=== PATIENT | female | born 1930 | race Caucasian/White ===

== ENCOUNTER 2019-07-11 19:42 | Emergency (ER) | payer MEDICARE ==
[2019-07-11] MEDS ORDERED: NORMAL SALINE 500 ML IV ONE (21:36)
--- NOTE | 2019-07-11 22:40 | RADIOLOGY REPORT (SQ) ---
EXAM DESCRIPTION: CT HEAD WITHOUT IV CONTRAST COMPLETED DATE/TME: 07/11/2019 21:34 CLINICAL HISTORY: fall COMPARISON: None Available. TECHNIQUE: Contiguous axial images of the brain were obtained without the administration of intravenous contrast.This exam was performed according to our departmental dose-optimization program, which includes automated exposure control, adjustment of the mA and/or kV according to patient size and/or use of iterative reconstruction technique. FINDINGS: There is no acute intracranial hemorrhage or mass effect. Areas of low attenuation in the periventricular and subcortical white matter are nonspecific but suggestive of small vessel disease. There is generalized atrophy. Ventricular system is within normal limits. There is adequate hurtado-white matter differentiation. There is no skull fracture. The visualized paranasal sinuses and mastoid air cells are within normal limits. There is atherosclerosis. IMPRESSION: No acute intracranial abnormalities.
--- NOTE | 2019-07-11 22:47 | RADIOLOGY REPORT (SQ) ---
EXAM DESCRIPTION: Chest x-ray one view CLINICAL HISTORY: fall COMPARISON: None FINDINGS: Cardiac silhouette is within normal limits. There is atherosclerosis. EKG leads project over the chest. There is no focal parenchymal or pleural disease. There is no acute osseous process visualized. IMPRESSION: No evidence of acute cardiopulmonary disease.
--- NOTE | 2019-07-11 22:48 | RADIOLOGY REPORT (SQ) ---
EXAM DESCRIPTION: XR PELVIS 1-2 VIEWS COMPLETED DATE/TME: 07/11/2019 21:38 CLINICAL HISTORY: 88 years, Female, fall COMPARISON: None. NUMBER OF VIEWS: 1 TECHNIQUE: AP pelvis LIMITATIONS: None. FINDINGS: Osteopenia. Degenerative changes of hips bilaterally. Degenerative change of the lumbar spine and sacroiliac joints. No radiographic evidence for acute fracture or dislocation. Correlate with any history of inability to ambulate. IMPRESSION: Osteopenia. No acute fracture copyright 2010 [employer]- All Rights Reserved
--- NOTE | 2019-07-11 23:11 | ER Document Report ---
Entered by CHARLY JOHNSON SCRIBE 07/11/192133 Acting as scribe for:SIENNA CORREIA IV, MD ED Fall - General Chief Complaint: Fall Stated Complaint: BACK PAIN/LEFT LEG PAIN/FALL Time Seen by Provider: 07/11/19 21:23 Primary Care Provider: CHARLENE KEE NP [Primary Care Provider] - Follow up as needed Mode of Arrival: Medic Information source: Patient, Emergency Med Personnel Notes: This 88 year old female patient brought in by EMS presents to the ED today with complaints of a fall that occurred prior to arrival. Patient states that she was trying to leave the bathroom when she tripped on the rug and fell, landing on the left side of her body. She notes that she wasn't able to move for approximately x3 hours. She reports pain to her neck, LUE, left hip, back, and left foot. Denies hitting her head or LOC. EMS administered 75 mcg Fentanyl and 400 ml LR during transport in addition to placing a C-collar per ED nurse. Patient also reports generalized weakness and poor appetite for the past x2 weeks due to her 's . - Related data Allergies/Adverse Reactions: No Known Allergies Allergy (Unverified 06/26/12 11:18) Past Medical History - General Information source: Patient - Social History Smoking Status: Never Smoker Cigarette use (# per day): No Chew tobacco use (# tins/day): No Smoking Education Provided: No Lives with: Family Family History: Reviewed & Not Pertinent Patient has suicidal ideation: No Patient has homicidal ideation: No - Past Medical History Cardiac Medical History: Reports: Hx Atrial Fibrillation, Hx Hypertension - ATENOLOL GI Medical History: Reports: Hx Hiatal Hernia Review of Systems - Review of Systems Constitutional: No symptoms reported EENT: No symptoms reported Cardiovascular: No symptoms reported Respiratory: No symptoms reported Gastrointestinal: No symptoms reported Genitourinary: No symptoms reported Female Genitourinary: No symptoms reported Musculoskeletal: See HPI, Back pain, Joint pain - Left hip, Neck pain, Other - LUE and LLE pain. denies: Deformity Skin: No symptoms reported Hematologic/Lymphatic: No symptoms reported Neurological/Psychological: See HPI. denies: Lost consciousness, Headaches -: Yes All other systems reviewed and negative Physical Exam - Vital signs Vitals: Resp BP Pulse Ox 17 115/57 L 92 07/11/19 19:48 07/11/19 19:48 07/11/19 19:48 - General General appearance: Alert, Other - C-spine immobilized by rigid C-collar In distress: None - HEENT Head: Normocephalic, Atraumatic Eyes: Normal Pupils: PERRL - Respiratory Respiratory status: No respiratory distress Chest status: Nontender Breath sounds: Normal Chest palpation: Normal - Cardiovascular Rhythm: Regular Heart sounds: Normal auscultation Murmur: No Friction rub: No Gallop: None auscultated - Abdominal Inspection: Normal Distension: No distension Bowel sounds: Normal Tenderness: Nontender - Abdomen soft Organomegaly: No organomegaly - Back Back: Normal, Nontender - Extremities General upper extremity: Normal inspection, Other - No deformity General lower extremity: Normal inspection, Other - No deformity. No foreshortening of the LE - Neurological Neuro grossly intact: Yes Orientation: AAOx4 Speech: Other - Slurred due to pain medication Cranial nerves: Normal. No: Facial palsy - Psychological Associated symptoms: Normal affect, Normal mood - Skin Skin Temperature: Warm Skin Moisture: Dry Skin Color: Normal Course - Re-evaluation Re-evalutation: 07/12/19 02:04 Results of ED MSE discussed with patient. All questions were answered prior to discharge. Emergency signs and symptoms, reasons to return to the emergency department discussed with patient. - Vital Signs Vital signs: Temp Pulse Resp BP Pulse Ox 98.6 F 99 25 H 112/54 L 95 07/11/19 19:49 07/11/19 19:49 07/12/19 01:01 07/12/19 01:01 07/12/19 01:01 - Laboratory Result Diagrams: 07/11/19 19:48 07/12/19 00:37 Laboratory results interpreted by me: 07/11/19 07/12/19 07/12/19 19:48 00:37 01:05 Hct 34.9 L Lymph % (Auto) 9.0 L Beltrami % (Auto) 13.4 H Sodium 132.1 L Potassium 3.5 L Chloride 96 L BUN 37 H Est GFR (MDRD) Non-Af 51 L AST 46 H Creatine Kinase 315 H Total Protein 6.1 L Albumin 3.1 L Urine Protein 30 H Urine Ketones TRACE H Urine Blood MODERATE H Urine Ascorbic Acid 40 H Discharge - Discharge Clinical Impression: Grief reaction, Dehydration Accidental fall Qualifiers: Encounter type: initial encounter Qualified Code(s): W19.XXXA - Unspecified fall, initial encounter Condition: Good Disposition: HOME, SELF-CARE Additional Instructions: Return to the Emergency Department without delay if any worse. HOME CARE INSTRUCTIONS & INFORMATION: Thank you for choosing us for your medical needs. We hope you're satisfied with the care you received. After you leave, you must properly care for your problem and, at the same time, observe its progress. Any condition can change. Some illnesses can change rapidly over hours or days. If your condition worsens, return to the Emergency Department or see your physician promptly. ABOUT YOUR X-RAYS AND EKG'S: If you had an EKG or X-rays taken, they have been read by the Emergency Physician. The X-rays and EKG's will also be read by a Radiologist or Motor Room Controller within 24 hours. If discrepancies are noted, you will be notified by telephone. Please be certain the ED has a correct telephone number & address where you can be reached. Also, realize that some fractures or abnormalities do not show up on initial X-rays. If your symptoms continue, see your physician. ABOUT YOUR LABORATORY TEST: If you had laboratory tests, the results have been reviewed by the Emergency Physician. Some test results (for example cultures) may not be available for several days. You will be contacted if any test result shows you need additional treatment. Please be certain the ED has a correct telephone number and address where you can be reached. ABOUT YOUR MEDICATIONS: You will receive instructions on how to take your medicine on the prescription label you receive. Additional information may be provided by the Pharmacy. If you have questions afterwards, call the ED for clarification or further instructions. Some prescribed medications may cause drowsiness. Do not perform tasks such as driving a car or operating machinery without consulting your Pharmacist. If you feel you need a refill of pain medication, your condition will need re-evaluation. Please do not call for a refill of any medication. ABOUT YOUR SIGNATURE: Signature of this document acknowledges to followin. Understanding that you received emergency treatment and that you may be released before al medical problems are known or treated. Please be certain the ED has a correct phone number & address where you can be reached. 2. Acknowledgement that you will arrange for follow-up care as recommended. 3. Authorization for the Emergency Physician to provide information to your follow-up Physician in order to maximize your care. AT ANY TIME, IF YOUR SYMPTOMS CHANGE SIGNIFICANTLY OR WORSEN OR YOU DEVELOP NEW SYMPTOMS, RETURN TO THE EMERGENCY DEPARTMENT IMMEDIATELY FOR RE-EVALUATION. OUR GOAL IS TO PROVIDE EXCELLENT MEDICAL CARE! WE HOPE THAT WE HAVE MET YOUR EXPECTATIONS DURING YOUR EMERGENCY DEPARTMENT VISIT AND THAT YOU FEEL YOU HAVE RECEIVED EXCELLENT CARE! Dehydration Dehydration can result from vomiting or diarrhea, fever, or decreased intake of fluids. If severe, hospitalization and intravenous fluids may be required. Most cases are treated at home with fluids by mouth. For the next 24 hours, drink lots of clear fluids. In mild cases, this can be soda pop or sports drinks. For more severe dehydration, the doctor may recommend special fluids such as Pedialyte or Lytren. Try to get three liters (3 quarts) of fluid per day. If vomiting occurs, continue to drink the fluids frequently (every 15 to 20 minutes), but in small amounts (one or two ounces). Depending on the type of dehydration, the doctor may prescribe antinausea medicine or potassium replacements. Call the doctor or return for re-examination if you become progressively weak, vomit repeatedly, or have other new symptoms. Referrals: CHARLENE KEE NP [Primary Care Provider] - Follow up as needed I personally performed the services described in the documentation, reviewed and edited the documentation which was dictated to the scribe in my presence, and it accurately records my words and actions.
[2019-07-11 23:29] LABS: ABSOLUTE LYMPHOCYTES (AUTO) 0.5 10^3/uL (0.5-4.7); ABSOLUTE MONOCYTES (AUTO) 0.7 10^3/uL (0.1-1.4); ABSOLUTE NEUT (AUTO) 3.9 10^3/uL (1.7-8.2); BASOPHILS % (AUTO) 0.4 % (0-2); EOSINOPHILS % (AUTO) 0.1 % (0-6); HEMATOCRIT 34.9 % (36.0-47.0); HEMOGLOBIN 12.3 g/dL (12.0-15.5); MEAN CORPUSCULAR HGB CONC 35.2 g/dL (32.0-36.0); MEAN CORPUSCULAR VOLUME 88 fl (80-97); MONOCYTES % (AUTO) 13.4 % (3-13); PLATELET COUNT 150 10^3/uL (150-450); RED BLOOD COUNT 3.96 10^6/uL (3.72-5.28); RED CELL DISTRIBUTION WIDTH 13.8 % (11.5-14.0); SEGMENTED NEUTROPHILS % (AUTO) 77.1 % (42-78); TOTAL CELLS COUNTED % (AUTO) 100 %; WHITE BLOOD COUNT 5.1 10^3/uL (4.0-10.5)
[2019-07-12 01:08] LABS: ALBUMIN 3.1 g/dL (3.5-5.0); ALKALINE PHOSPHATASE 65 U/L (38-126); ANION GAP 8 (5-19); ASPARTATE AMINO TRANSFERASE 46 U/L (14-36); BILIRUBIN,TOTAL 1.1 mg/dL (0.2-1.3); BLOOD UREA NITROGEN 37 mg/dL (7-20); CALCIUM 8.4 mg/dL (8.4-10.2); CARBON DIOXIDE 28 mmol/L (22-30); CHLORIDE 96 mmol/L (98-107); CREATINE KINASE 315 U/L (30-135); GLUCOSE 105 mg/dL (75-110); POTASSIUM 3.5 mmol/L (3.6-5.0); TOTAL PROTEIN 6.1 g/dL (6.3-8.2)
[2019-07-12 01:20] LABS: APPEARANCE,URINE CLOUDY; BILIRUBIN,URINE NEGATIVE (NEGATIVE); COLOR,URINE AMBER; GLUCOSE, URINE NEGATIVE (NEGATIVE); KETONES,URINE TRACE mg/dL (NEGATIVE); PROTEIN,URINE 30 mg/dL (NEGATIVE); URINE SPECIFIC GRAVITY 1.017; UROBILINOGEN,URINE NEGATIVE mg/dL (<2.0)
[2019-07-12 03:24] VITALS: BP 115/69
--- NOTE | 2019-07-12 10:54 | EKG REPORT ---
SEVERITY:- ABNORMAL ECG - ATRIAL FIBRILLATION, V-RATE 73-129 PROBABLE INFEROLATERAL INFARCT, AGE INDETERM CONSIDER ANTERIOR INFARCT : Confirmed by: Eric Cardona 12-Jul-2019 10:52:30
== END 2019-07-12 03:24 | disposition home or self-care (01) ==
LOC: ER 19:42
DX: F43.20 Adjustment disorder, unspecified (principal); E86.0 Dehydration; M54.9 Dorsalgia, unspecified; M79.605 Pain in left leg; M54.2 Cervicalgia; M79.602 Pain in left arm; M25.552 Pain in left hip; M79.672 Pain in left foot; R53.1 Weakness; R63.0 Anorexia; W01.0XXA Fall on same level from slipping, tripping and stumbling without subsequent striking against object, initial encounter; I10 Essential (primary) hypertension
CPT/HCPCS: 93005; 36415; 82550; 85025; 80053; 81001; 71045; 72170; 70450; 93010; J7040; 96360; 99284

== ENCOUNTER 2019-09-24 08:51 | Inpatient (IN) | payer MEDICARE ==
[2019-09-24 09:24] LABS: ABSOLUTE LYMPHOCYTES (AUTO) 0.3 10^3/uL (0.5-4.7); ABSOLUTE MONOCYTES (AUTO) 0.6 10^3/uL (0.1-1.4); ABSOLUTE NEUT (AUTO) 3.5 10^3/uL (1.7-8.2); BASOPHILS % (AUTO) 0.4 % (0-2); EOSINOPHILS % (AUTO) 0.3 % (0-6); HEMATOCRIT 33.6 % (36.0-47.0); HEMOGLOBIN 11.9 g/dL (12.0-15.5); LYMPHOCYTES % (AUTO) 7.6 % (13-45); MEAN CORPUSCULAR HGB CONC 35.4 g/dL (32.0-36.0); MEAN CORPUSCULAR VOLUME 87 fl (80-97); MONOCYTES % (AUTO) 13.1 % (3-13); PLATELET COUNT 205 10^3/uL (150-450); RED BLOOD COUNT 3.85 10^6/uL (3.72-5.28); RED CELL DISTRIBUTION WIDTH 14.7 % (11.5-14.0); SEGMENTED NEUTROPHILS % (AUTO) 78.6 % (42-78); TOTAL CELLS COUNTED % (AUTO) 100 %; WHITE BLOOD COUNT 4.5 10^3/uL (4.0-10.5)
[2019-09-24 09:26] LABS: APPEARANCE,URINE SLIGHTLY-CLOUDY; BILIRUBIN,URINE NEGATIVE (NEGATIVE); COLOR,URINE YELLOW; GLUCOSE, URINE NEGATIVE (NEGATIVE); KETONES,URINE NEGATIVE (NEGATIVE); LEUKOCYTE ESTERASE,URINE NEGATIVE (NEGATIVE); NITRITE,URINE NEGATIVE (NEGATIVE); PROTEIN,URINE NEGATIVE (NEGATIVE); URINE SPECIFIC GRAVITY 1.011; UROBILINOGEN,URINE NEGATIVE mg/dL (<2.0)
[2019-09-24 09:29] LABS: INTERNATIONAL RATION (INR) 1.39; PROTHROMBIN TIME 17.1 SEC (11.4-15.4)
[2019-09-24 09:42] LABS: ALBUMIN 3.3 g/dL (3.5-5.0); ALKALINE PHOSPHATASE 73 U/L (38-126); ASPARTATE AMINO TRANSFERASE 34 U/L (14-36); BILIRUBIN,TOTAL 1.1 mg/dL (0.2-1.3); BLOOD UREA NITROGEN 14 mg/dL (7-20); CARBON DIOXIDE 29 mmol/L (22-30); CHLORIDE 82 mmol/L (98-107); GLUCOSE 106 mg/dL (75-110); POTASSIUM 3.8 mmol/L (3.6-5.0); TOTAL PROTEIN 6.7 g/dL (6.3-8.2)
[2019-09-24 09:43] LABS: ANION GAP 6 (5-19)
[2019-09-24] MEDS ORDERED: NORMAL SALINE 1000 ML 1,000 ML IV ONE (09:54)
--- NOTE | 2019-09-24 11:44 | ER Document Report ---
Entered by SONNY MARTINEZ SCRIBE 09/24/19 1059 Acting as scribe for:LEONIDAS FELDMAN MD ED General - General Chief Complaint: Swelling of Lower Extremity Stated Complaint: WEAKNESS Time Seen by Provider: 09/24/19 09:51 Primary Care Provider: CHARLENE KEE NP [Primary Care Provider] - Follow up as needed Information source: Patient Notes: This 89 year old female patient presents to the emergency department today with complaints of bilateral leg weakness. Patient states that she uses a walker at baseline and today she was attempting to get out of bed and into the restroom with her walker but her legs were to weak to get her there. Patient states this has never happened to her in the past. She adds that she has been trying to drink more water recently. - Related Data Allergies/Adverse Reactions: No Known Allergies Allergy (Unverified 06/26/12 11:18) Past Medical History - General Information source: Patient - Social History Smoking Status: Unknown if Ever Smoked Cigarette use (# per day): No Frequency of alcohol use: None Drug Abuse: None Lives with: Family Family History: Reviewed & Not Pertinent Patient has homicidal ideation: No - Past Medical History Cardiac Medical History: Reports: Hx Atrial Fibrillation, Hx Hypertension - ATENOLOL GI Medical History: Reports: Hx Hiatal Hernia Surgical Hx: Negative Review of Systems - Review of Systems Constitutional: No symptoms reported EENT: No symptoms reported Cardiovascular: No symptoms reported Respiratory: No symptoms reported Gastrointestinal: No symptoms reported Genitourinary: No symptoms reported Female Genitourinary: No symptoms reported Musculoskeletal: No symptoms reported Skin: No symptoms reported Hematologic/Lymphatic: No symptoms reported Neurological/Psychological: See HPI, Weakness - lower extremities -: Yes All other systems reviewed and negative Physical Exam - Vital signs Vitals: Resp Pulse Ox 15 92 09/24/19 08:55 09/24/19 08:55 - Notes Notes: Physical Exam: General: Alert, appears well. HEENT: Normocephalic. Atraumatic. PERRL. Extraocular movements intact. Oropharynx clear. Neck: Supple. Non-tender. Respiratory: No respiratory distress. Clear and equal breath sounds bilaterally. Cardiovascular: Regular rate and rhythm. Abdominal: Normal Inspection. Non-tender. No distension. Normal Bowel Sounds. Back: No gross abnormalities. Extremities: Moves all four extremities. Upper extremities: Normal inspection. Normal ROM. Lower extremities: Minimal pitting edema bilaterally. Neurological: Normal cognition. AAOx4. Normal speech. Psychological: Normal affect. Normal Mood. Skin: Warm. Dry. Normal color. Course - Vital Signs Vital signs: Temp Pulse Resp BP Pulse Ox 98 F 14 107/53 L 97 09/24/19 09:01 09/24/19 11:01 09/24/19 11:01 09/24/19 11:01 - Laboratory Result Diagrams: 09/24/19 09:03 09/24/19 09:03 Laboratory results interpreted by me: 09/24/19 09/24/19 09/24/19 09:03 09:03 09:03 Hgb 11.9 L Hct 33.6 L RDW 14.7 H Lymph % (Auto) 7.6 L Terry % (Auto) 13.1 H Absolute Lymphs (auto) 0.3 L Seg Neutrophils % 78.6 H PT 17.1 H Sodium 117.3 L* Chloride 82 L Albumin 3.3 L Urine Ascorbic Acid 09/24/19 09:03 Hgb Hct RDW Lymph % (Auto) Terry % (Auto) Absolute Lymphs (auto) Seg Neutrophils % PT Sodium Chloride Albumin Urine Ascorbic Acid 40 H - EKG Interpretation by Dc EKG shows normal: Anita, Intervals, ST-T Waves. abnormal: QRS Complexes - Inferior Q waves Rate: Normal - 80 Rhythm: A.Fib - Consults Kortney Grigsby NP Time consulted: 11:53 Consulted provider: will come to ER Discharge - Discharge Clinical Impression: Hyponatremia, Weakness of both lower extremities Condition: Stable Disposition: ADMITTED INPATIENT Admitting Provider: Chalo (Hospitalist) Unit Admitted: Telemetry Referrals: CHARLENE KEE NP [Primary Care Provider] - Follow up as needed I personally performed the services described in the documentation, reviewed and edited the documentation which was dictated to the scribe in my presence, and it accurately records my words and actions.
[2019-09-24 13:10] LABS: URINE CREATININE 74.9 mg/dL (15-278)
[2019-09-24 13:52] LABS: BLOOD UREA NITROGEN 13 mg/dL (7-20); CALCIUM 8.2 mg/dL (8.4-10.2); CARBON DIOXIDE 28 mmol/L (22-30); CHLORIDE 86 mmol/L (98-107); GLUCOSE 109 mg/dL (75-110); POTASSIUM 3.6 mmol/L (3.6-5.0)
[2019-09-24 13:54] LABS: ANION GAP 5 (5-19)
[2019-09-24] MEDS ORDERED: MAGNESIUM HYDROXIDE SUSP 30 ML UDCUP PO PRN (14:50)
[2019-09-24] MEDS ORDERED: ACETAMINOPHEN 325 MG TABLET PO PRN (14:50)
[2019-09-24] MEDS ORDERED: PROMETHAZINE HCL INJ 25 MG/1 ML VIAL IV PRN (14:50)
[2019-09-24] MEDS ORDERED: ALBUTEROL SULFATE 0.083% NEB 2.5 MG/3 ML AMPUL NEB PRN (14:50)
[2019-09-24] MEDS ORDERED: MAG HYDROX/AL HYDROX/SIMETH SUSP 30 ML UDCUP PO PRN (14:50)
[2019-09-24] MEDS ORDERED: ONDANSETRON HCL INJ/PF 4 MG/2 ML SDV IV PRN (14:50)
--- NOTE | 2019-09-24 16:01 | RADIOLOGY REPORT (SQ) ---
EXAM DESCRIPTION: CT SOFT TISSUE NECK WITH IMAGES COMPLETED DATE/TIME: 09/24/2019 3:49 pm REASON FOR STUDY: dysphagia, early satiety COMPARISON: None. TECHNIQUE: Post IV contrasted scanning from skull base through lung apices with review of bone, soft tissue and lung windows. Reconstructed coronal and sagittal MPR images reviewed. All images stored on PACS. All CT scanners at this facility use dose modulation, iterative reconstruction, and/or weight based d osing when appropriate to reduce radiation dose to as low as reasonably achievable (ALARA). [facility]: Dose Right [facility]: CareDose [facility]: Dose Right [facility]: Teradose 4D [facility]: [employer] CONTRAST TYPE AND DOSE: contrast/concentration: Isovue 350.00 mmol/ml; Total Contrast Delivered: 80. 0 ml; Total Saline Delivered: 55.0 ml RENAL FUNCTION: GFR > 60. RADIATION DOSE: CT Rad equipment meets quality standard of care and radiation dose reduction techniq ues were employed. CTDIvol: 13.4 - 26.8 mGy. DLP: 1335 mGy-cm. . LIMITATIONS: None. FINDINGS: SKULL BASE: Intact. MAJOR SALIVARY GLANDS: No solid or cystic masses. No inflammatory changes. LYMPHADENOPATHY: No adenopathy. MUCOSAL MASSES OR ASYMMETRY: No mucosal masses or asymmetry. LARYNX/CORDS: No abnormal findings. VASCULAR STRUCTURES: The major vessels are patent. LUNG APICES: See separate report of the same date. BONES: Intact. THYROID: Normal size. No masses. PARANASAL SINUSES: Clear. OTHER: No other significant finding. IMPRESSION: NO SIGNIFICANT FINDING IN THE SOFT TISSUES OF THE NECK. TECHNICAL DOCUMENTATION: JOB ID: [id number] Quality ID # [id number]: Final reports with documentation of one or more dose reduction techniques (e.g., Au tomated exposure control, adjustment of the mA and/or kV according to patient size, use of iterative reconstruction technique) 2010 [employer]- All Rights Reserved Reading location - IP/workstation name: [email or web address]
--- NOTE | 2019-09-24 16:25 | RADIOLOGY REPORT (SQ) ---
EXAM DESCRIPTION: CT CHEST WITH IMAGES COMPLETED DATE/TIME: 09/24/2019 3:49 pm REASON FOR STUDY: dysphagia, early satiety COMPARISON: None. TECHNIQUE: CT scan of the chest performed using helical scanning technique with dynamic intravenous contrast injection. Images reviewed with lung, soft tissue and bone windows. Reconstructed coronal and sagittal MPR and MIP images reviewed. All images stored on PACS. All CT scanners at this facility use dose modulation, iterative reconstruction, and/or weight based d osing when appropriate to reduce radiation dose to as low as reasonably achievable (ALARA). [facility]: Dose Right [facility]: CareDose [facility]: Dose Right [facility]: Teradose 4D [facility]: [employer] CONTRAST TYPE AND DOSE: 80 mL Omnipaque 350- low osmolar. RENAL FUNCTION: BUN 13 creatinine 0.61 RADIATION DOSE: . LIMITATIONS: None. FINDINGS: LUNGS AND PLEURA: Minimal right pleural effusion. No infiltrate or mass. HILAR AND MEDIASTINAL STRUCTURES: No identified masses or abnormal nodes. HEART AND VASCULAR STRUCTURES: No aneurysm or dissection. No central pulmonary emboli. No pericardi al effusion. HARDWARE: None in the chest. UPPER ABDOMEN: A couple of small nonobstructing intrarenal calculi are seen in the right kidney. THYROID AND OTHER SOFT TISSUES: No masses. No adenopathy. BONES: No significant finding. OTHER: No other significant finding. IMPRESSION: Minimal right pleural effusion. Small nonobstructing right renal calculi. No other sig nificant findings in the chest. TECHNICAL DOCUMENTATION: JOB ID: [id number] Quality ID # [id number]: Final reports with documentation of one or more dose reduction techniques (e.g., Au tomated exposure control, adjustment of the mA and/or kV according to patient size, use of iterative reconstruction technique) 2010 [employer]- All Rights Reserved Reading location - IP/workstation name: [email or web address]
--- NOTE | 2019-09-24 17:52 | PDOC H&P ---
History of Present Illness Admission Date/PCP: 09/24/19 12:14 CHARLENE KEE NP Patient complains of: Generalized weakness History of Present Illness: ESTRADA TAYLOR is a 89 year old female with a past medical history significant for atrial fibrillation (anticoagulated on Eliquis, hypertension, hyperlipidemia, and obesity who presented to the emergency department today with a complaint of generalized weakness that has been progressively worsening over the last several weeks. She also reports early satiety with poor appetite. She is drinking plenty of fluids. Evaluation in the emergency department found hypotension (97/59) but otherwise stable vital signs, mild anemia (hemoglobin 11.9), hyponatremia (NA 117.3), negative troponin, negative urinalysis EKG demonstrated atrial fibrillation. She is provided IV fluids and liberalized dietary sodium. She is referred to the hospitalist for further evaluation management of the above-stated complaints and findings. Past Medical History Cardiac Medical History: Reports: Atrial Fibrillation, Hypertension Denies: Congestive Heart Failure, Coronary Artery Disease, Myocardial Infarction Pulmonary Medical History: Reports: None EENT Medical History: Reports: None Neurological Medical History: Reports: None Endocrine Medical History: Reports: None Renal/ Medical History: Reports: None Malignancy Medical History: Reports: None GI Medical History: Reports: Hiatal Hernia Denies: Hepatitis Musculoskeltal Medical History: Reports: None Skin Medical History: Reports: None Psychiatric Medical History: Reports: None Traumatic Medical History: Reports: None Hematology: Denies: Anemia, Sickle Cell Disease Infectious Medical History: Reports: None Past Surgical History Past Surgical History: Reports: Cholecystectomy Denies: Amputation, Pacemaker Social History Information Source: Patient Lives with: Family Smoking Status: Unknown if Ever Smoked Electronic Cigarette use?: No Frequency of Alcohol Use: None Hx Recreational Drug Use: No - Advance Directive Resuscitation Status: Do Not Resuscitate Family History Family History: Reviewed & Not Pertinent, Malignancy, Thyroid Disfunction Parental Family History Reviewed: Yes Children Family History Reviewed: Yes Sibling(s) Family History Reviewed.: Yes Medication/Allergy Home Medications: Atenolol [Tenormin 25 mg Tablet] 50 mg PO DAILY 06/26/12 Atorvastatin Calcium [Lipitor 10 mg Tablet] 10 mg PO DAILY 06/26/12 Calcium Citrate/Vitamin D3 [Citracal + D Caplet] 2 each PO DAILY 06/26/12 Gluc Abarca/Chondro Abarca A/Vit C/Mn [Glucosamine 1,500 Complex Cap] 2 each PO DAILY 06/26/12 Apixaban [Eliquis 5 mg Tablet] 5 mg PO BID 09/24/19 Lisinopril/Hydrochlorothiazide [Lisinopril-Hctz 20-25 mg Tab] 1 each PO DAILY 09/24/19 Vit A/Vit C/Vit E/Zinc/Copper [Preservision Areds Tablet] 1 each PO DAILY 09/24/19 Allergies/Adverse Reactions: No Known Allergies Allergy (Unverified 06/26/12 11:18) Review of Systems Constitutional: PRESENT: weakness. ABSENT: chills, fever(s), headache(s), weight gain, weight loss Eyes: ABSENT: visual disturbances Ears: ABSENT: hearing changes Cardiovascular: ABSENT: chest pain, dyspnea on exertion, edema, orthropnea, palpitations Respiratory: ABSENT: cough, hemoptysis Gastrointestinal: PRESENT: dysphagia, other - Early satiety. ABSENT: abdominal pain, constipation, diarrhea, hematemesis, hematochezia, nausea, vomiting Genitourinary: ABSENT: dysuria, hematuria Musculoskeletal: ABSENT: joint swelling Integumentary: ABSENT: rash, wounds Neurological: ABSENT: abnormal gait, abnormal speech, confusion, dizziness, focal weakness, syncope Psychiatric: ABSENT: anxiety, depression, homidical ideation, suicidal ideation Endocrine: ABSENT: cold intolerance, heat intolerance, polydipsia, polyuria Hematologic/Lymphatic: ABSENT: easy bleeding, easy bruising Physical Exam Vital Signs: Temp Pulse Resp BP Pulse Ox 98 F 16 104/54 L 98 09/24/19 09:01 09/24/19 13:01 09/24/19 13:01 09/24/19 13:01 Intake & Output 09/23/19 09/24/19 09/25/19 06:59 06:59 06:59 Intake Total 1000 Balance 1000 Weight 67.5 kg General appearance: PRESENT: no acute distress, cooperative, well-developed, well-nourished - Overweight Head exam: PRESENT: atraumatic, normocephalic Eye exam: PRESENT: conjunctiva pink, EOMI, PERRLA. ABSENT: scleral icterus Mouth exam: PRESENT: moist, tongue midline Neck exam: ABSENT: carotid bruit, JVD, lymphadenopathy, thyromegaly Respiratory exam: PRESENT: clear to auscultation jennyfer, symmetrical, unlabored. ABSENT: rales, rhonchi, wheezes Cardiovascular exam: PRESENT: RRR, +S1, +S2. ABSENT: diastolic murmur, rubs, systolic murmur Pulses: PRESENT: normal dorsalis pedis pul Vascular exam: PRESENT: normal capillary refill GI/Abdominal exam: PRESENT: normal bowel sounds, soft. ABSENT: distended, gu arding, mass, organolmegaly, rebound, tenderness Rectal exam: PRESENT: deferred Extremities exam: PRESENT: full ROM. ABSENT: calf tenderness, clubbing, pedal edema Neurological exam: PRESENT: alert, awake, oriented to person, oriented to place, oriented to time, oriented to situation, CN II-XII grossly intact, other - Fati jace. ABSENT: motor sensory deficit Psychiatric exam: PRESENT: appropriate affect, normal mood. ABSENT: homicidal ideation, suicidal ideation Skin exam: PRESENT: dry, intact, warm. ABSENT: cyanosis, rash Results Laboratory Results: 09/24/19 09:03 09/24/19 13:18 09/24/19 09/24/19 09/24/19 09:03 09:03 09:03 WBC 4.5 RBC 3.85 Hgb 11.9 L Hct 33.6 L MCV 87 MCH 31.0 MCHC 35.4 RDW 14.7 H Plt Count 205 Seg Neutrophils % 78.6 H Sodium 117.3 L* Potassium 3.8 Chloride 82 L Carbon Dioxide 29 Anion Gap 6 BUN 14 Creatinine 0.69 Est GFR ( Amer) > 60 Glucose 106 Calcium 9.0 Total Bilirubin 1.1 AST 34 Alkaline Phosphatase 73 Total Protein 6.7 Albumin 3.3 L Urine Color YELLOW Urine Appearance SLIGHTLY-CLOUDY Urine pH 7.0 Ur Specific Gunpowder 1.011 Urine Protein NEGATIVE Urine Glucose (UA) NEGATIVE Urine Ketones NEGATIVE Urine Blood NEGATIVE Urine Nitrite NEGATIVE Ur Leukocyte Esterase NEGATIVE Urine WBC (Auto) 1 Urine RBC (Auto) 1 09/24/19 13:18 WBC RBC Hgb Hct MCV MCH MCHC RDW Plt Count Seg Neutrophils % Sodium 119.4 L* Potassium 3.6 Chloride 86 L Carbon Dioxide 28 Anion Gap 5 BUN 13 Creatinine 0.61 Est GFR ( Amer) > 60 Glucose 109 Calcium 8.2 L Total Bilirubin AST Alkaline Phosphatase Total Protein Albumin Urine Color Urine Appearance Urine pH Ur Specific Gunpowder Urine Protein Urine Glucose (UA) Urine Ketones Urine Blood Urine Nitrite Ur Leukocyte Esterase Urine WBC (Auto) Urine RBC (Auto) 09/24/19 09/24/19 09:03 09:03 Creatine Kinase 73 Troponin I < 0.012 Impressions: Chest CT 09/24/19 00:00 IMPRESSION: Minimal right pleural effusion. Small nonobstructing right renal calculi. No other significant findings in the chest. Soft Tissue Neck CT 09/24/19 00:00 IMPRESSION: NO SIGNIFICANT FINDING IN THE SOFT TISSUES OF THE NECK. Assessment and Plan - Diagnosis (1) Hyponatremia Is this a current diagnosis for this admission?: Yes Plan: Slight improvement; 117-> 119. Received 1 L normal saline bolus while in the emergency department. Patient is admitted to the medical floor. We will continue gentle IV fluids. Hold hydrochlorothiazide. Liberalize dietary sodium. Serial chemistries. (2) Atrial fibrillation Qualifiers: Atrial fibrillation type: longstanding persistent Qualified Code(s): I48.11 - Longstanding persistent atrial fibrillation Is this a current diagnosis for this admission?: Yes Plan: Patient will be monitored on telemetry. Rate controlled on home dose atenolol. Continue chronic anticoagulation with Eliquis. (3) Hypertension Is this a current diagnosis for this admission?: Yes Plan: Continue home dose atenolol. Continue lisinopril. Hold hydrochlorothiazide secondary to hyponatremia. (4) Weakness of both lower extremities Is this a current diagnosis for this admission?: Yes Plan: Likely secondary to #1. We will check thyroid and B12 with a.m. lab work. (5) Early satiety Is this a current diagnosis for this admission?: Yes Plan: Patient reports history of hiatal hernia. She also complains of early satiety and 40 pound weight loss over the last [address] Neck and Chest negative for acute findings (did not note esophageal stricture or hiatal hernia; no masses). Will check TSH and B12 w/ AM lab work. deputy sheriff k9 handler is consulted. - Time Time Spent with patient: 35 or more minutes Medications reviewed and adjusted accordingly: Yes Anticipated Discharge Disposition: Home with Home Health Anticipated Discharge Timeframe: within 72 hours - Inpatient Certification Based on my medical assessment, after consideration of the patient's comor bidities, presenting symptoms, or acuity I expect that the services needed warrant INPATIENT care.: Yes I certify that my determination is in accordance with my understanding of Medicare's requirements for reasonable and necessary INPATIENT services [42 CFR 412.3e].: Yes Medical Necessity: Need Close Monitoring Due to Risk of Patient Decompensation, Need For IV Fluids, Risk of Complication if Not Cared For in Hospital
--- NOTE | 2019-09-24 18:02 | EKG REPORT ---
SEVERITY:- ABNORMAL ECG - ATRIAL FIBRILLATION INFERIOR INFARCT, AGE INDETERMINATE : Confirmed by: Kathleen Nguyen MD 24-Sep-2019 18:01:28
[2019-09-24] MEDS: APIXABAN 5 MG TABLET PO SCH (19:57)
[2019-09-24] MEDS: NORMAL SALINE 1000 ML 1,000 ML IV PRN (19:59)
[2019-09-24 23:02] LABS: ANION GAP 6 (5-19); BLOOD UREA NITROGEN 13 mg/dL (7-20); CALCIUM 8.4 mg/dL (8.4-10.2); CARBON DIOXIDE 27 mmol/L (22-30); CHLORIDE 87 mmol/L (98-107); GLUCOSE 102 mg/dL (75-110); POTASSIUM 3.9 mmol/L (3.6-5.0)
[2019-09-25 06:10] LABS: MEAN CORPUSCULAR HEMOGLOBIN 31.1 pg (27.0-33.4); MEAN CORPUSCULAR HGB CONC 35.4 g/dL (32.0-36.0); MEAN CORPUSCULAR VOLUME 88 fl (80-97); PLATELET COUNT 174 10^3/uL (150-450); RED BLOOD COUNT 3.53 10^6/uL (3.72-5.28); RED CELL DISTRIBUTION WIDTH 14.1 % (11.5-14.0); WHITE BLOOD COUNT 3.8 10^3/uL (4.0-10.5)
[2019-09-25 06:37] LABS: ANION GAP 8 (5-19); BLOOD UREA NITROGEN 11 mg/dL (7-20); CALCIUM 7.8 mg/dL (8.4-10.2); CARBON DIOXIDE 24 mmol/L (22-30); CHLORIDE 90 mmol/L (98-107); GLUCOSE 92 mg/dL (75-110); PHOSPHORUS 2.8 mg/dL (2.5-4.5); POTASSIUM 3.4 mmol/L (3.6-5.0)
[2019-09-25] MEDS ORDERED: POTASSIUM CHLORIDE 10 MEQ TABLET.ER PO ONE ×2 (08:30→10:51)
[2019-09-25] MEDS ORDERED: VITAMIN D3 PO SCH (10:00)
[2019-09-25] MEDS ORDERED: (PENDING PHARMACY ID) (Vit A/Vit C/Vit E/Zinc/Copper [Preservision Areds Tablet] 1 EACH) PO SCH (10:00)
[2019-09-25] MEDS ORDERED: [UNRECOGNIZED DRUG - OTHER] PO SCH (10:00)
[2019-09-25] MEDS ORDERED: CALCIUM CITRATE PO SCH (10:00)
[2019-09-25] MEDS ORDERED: ATENOLOL 50 MG PO SCH (10:00)
[2019-09-25] MEDS: ATENOLOL 50 MG TABLET PO SCH (10:52)
[2019-09-25] MEDS: LISINOPRIL 10 MG TABLET PO SCH (10:52)
[2019-09-25] MEDS: APIXABAN 5 MG TABLET PO SCH ×2 (10:52→17:15)
[2019-09-25] MEDS: DOCUSATE SODIUM 100 MG CAPSULE PO SCH (10:53)
--- NOTE | 2019-09-25 14:06 | PDOC PROGRESS REPORT ---
Subjective Progress Note for:: 09/25/19 Subjective:: Patient was seen on morning rounds. She is found resting bed, comfortably, on room air. She is slightly fatigued, though feeling much better today. She is pleased with her ability to work with physical therapy today; ambulated 25 feet with front wheel walker and contact-guard. She denies fever, chills, chest pain, palpitations, dyspnea, orthopnea, abdominal pain, nausea vomiting and diarrhea. She has no new questions or concerns. No concerns per nursing. Reason For Visit: HYPONATREMIA Physical Exam Vital Signs: Temp Pulse Resp BP Pulse Ox 98.1 F 73 16 120/56 L 94 09/25/19 08:04 09/25/19 09:18 09/25/19 09:18 09/25/19 08:04 09/25/19 09:18 Intake & Output 09/24/19 09/25/19 09/26/19 06:59 06:59 06:59 Intake Total 1000 Output Total 950 Balance 50 Weight 73.1 kg General appearance: PRESENT: no acute distress, cooperative, well-developed, well-nourished, other - overweight Head exam: PRESENT: atraumatic, normocephalic Eye exam: PRESENT: conjunctiva pink, EOMI, PERRLA. ABSENT: scleral icterus Mouth exam: PRESENT: moist, tongue midline Respiratory exam: PRESENT: clear to auscultation jennyfer, symmetrical, unlabored. ABSENT: rales, rhonchi, wheezes Cardiovascular exam: PRESENT: RRR. ABSENT: diastolic murmur, rubs, systolic murmur Pulses: PRESENT: normal dorsalis pedis pul Vascular exam: PRESENT: normal capillary refill Rectal exam: PRESENT: deferred Extremities exam: PRESENT: full ROM. ABSENT: calf tenderness, clubbing, pedal edema Musculoskeletal exam: PRESENT: ambulatory Neurological exam: PRESENT: alert, awake, oriented to person, oriented to place, oriented to time, oriented to situation, CN II-XII grossly intact. ABSENT: motor sensory deficit Psychiatric exam: PRESENT: appropriate affect, normal mood. ABSENT: homicidal ideation, suicidal ideation Skin exam: PRESENT: dry, intact, warm. ABSENT: cyanosis, rash Results Laboratory Results: 09/25/19 05:35 09/25/19 05:35 09/24/19 09/24/19 09/25/19 13:18 22:14 05:35 WBC 3.8 L RBC 3.53 L Hgb 11.0 L Hct 31.0 L MCV 88 MCH 31.1 MCHC 35.4 RDW 14.1 H Plt Count 174 Sodium 119.4 L* 120.1 L* Potassium 3.6 3.9 Chloride 86 L 87 L Carbon Dioxide 28 27 Anion Gap 5 6 BUN 13 13 Creatinine 0.61 0.64 Est GFR ( Amer) > 60 > 60 Glucose 109 102 Calcium 8.2 L 8.4 Phosphorus Magnesium Vitamin B12 TSH 09/25/19 09/25/19 05:35 05:35 WBC RBC Hgb Hct MCV MCH MCHC RDW Plt Count Sodium 122.4 L Potassium 3.4 L Chloride 90 L Carbon Dioxide 24 Anion Gap 8 BUN 11 Creatinine 0.57 Est GFR ( Amer) > 60 Glucose 92 Calcium 7.8 L Phosphorus 2.8 Magnesium 1.6 Vitamin B12 865.0 TSH 1.50 09/24/19 09/24/19 09:03 09:03 Creatine Kinase 73 Troponin I < 0.012 Impressions: Chest CT 09/24/19 00:00 IMPRESSION: Minimal right pleural effusion. Small nonobstructing right renal calculi. No other significant findings in the chest. Soft Tissue Neck CT 09/24/19 00:00 IMPRESSION: NO SIGNIFICANT FINDING IN THE SOFT TISSUES OF THE NECK. Assessment and Plan - Diagnosis (1) Hyponatremia Is this a current diagnosis for this admission?: Yes Plan: continued improvement; 117-> 119-> 122.4 Received 1 L normal saline bolus while in the emergency department. Patient is admitted to the medical floor. We will continue gentle IV fluids. Hold hydrochlorothiazide. Liberalize dietary sodium. Serial chemistries. (2) Atrial fibrillation Qualifiers: Atrial fibrillation type: longstanding persistent Qualified Code(s): I48.11 - Longstanding persistent atrial fibrillation Is this a current diagnosis for this admission?: Yes Plan: Patient will be monitored on telemetry. Rate controlled on home dose atenolol. Continue chronic anticoagulation with Eliquis. (3) Hypertension Is this a current diagnosis for this admission?: Yes Plan: Continue home dose atenolol. Continue lisinopril. Hold hydrochlorothiazide secondary to hyponatremia. (4) Weakness of both lower extremities Is this a current diagnosis for this admission?: Yes Plan: Likely secondary to #1. TSH and B12 are appropriate. (5) Early satiety Is this a current diagnosis for this admission?: Yes Plan: Patient reports history of hiatal hernia. She also complains of early satiety and 40 pound weight loss over the last [address] Neck and Chest negative for acute findings (did not note esophageal stricture or hiatal hernia; no masses). Likely physiologic r/t age. account processor is consulted. - Time Time Spent with patient: 25-34 minutes Medications reviewed and adjusted accordingly: Yes Anticipated Discharge Disposition: Home with Home Health Anticipated Discharge Timeframe: within 48 hours
[2019-09-25 15:22] LABS: ANION GAP 5 (5-19); BLOOD UREA NITROGEN 13 mg/dL (7-20); CALCIUM 8.2 mg/dL (8.4-10.2); CARBON DIOXIDE 26 mmol/L (22-30); CHLORIDE 93 mmol/L (98-107); GLUCOSE 108 mg/dL (75-110)
[2019-09-25 15:29] LABS: POTASSIUM 4.4 mmol/L (3.6-5.0)
--- NOTE | 2019-09-25 15:29 | RADIOLOGY REPORT (SQ) ---
EXAM DESCRIPTION: CT HEAD WITHOUT IMAGES COMPLETED DATE/TIME: 09/25/2019 3:13 pm REASON FOR STUDY: increased confusion from baseline. COMPARISON: 07/11/2019 TECHNIQUE: Axial images acquired through the brain without intravenous contrast. Images reviewed wi th bone, brain and subdural windows. Additional sagittal and coronal reconstructions were generated. Images stored on PACS. All CT scanners at this facility use dose modulation, iterative reconstruction, and/or weight based d osing when appropriate to reduce radiation dose to as low as reasonably achievable (ALARA). [facility]: Dose Right [facility]: CareDose [facility]: Dose Right [facility]: Teradose 4D [facility]: Intervolve RADIATION DOSE: CT Rad equipment meets quality standard of care and radiation dose reduction techniq ues were employed. CTDIvol: 48.6 mGy. DLP: 954 mGy-cm.mGy. LIMITATIONS: None. FINDINGS: VENTRICLES: Prominent. CEREBRUM: No masses. No hemorrhage. No midline shift. Areas of low density in the white matter mos t likely due to chronic micro-vascular ischemic change. No evidence for acute infarction. CEREBELLUM: No masses. No hemorrhage. No alteration of density. No evidence for acute infarction. EXTRAAXIAL SPACES: Age-related involutional change. No fluid collections. No masses. ORBITS AND GLOBE: No intra- or extraconal masses. Normal contour of globe without masses. CALVARIUM: No fracture. PARANASAL SINUSES: No fluid or mucosal thickening. SOFT TISSUES: No mass or hematoma. OTHER: No other significant finding. IMPRESSION: CHRONIC CHANGES OF ATROPHY AND MICROVASCULAR ISCHEMIA. NO ACUTE PROCESS. EVIDENCE OF ACUTE STROKE: NO. TECHNICAL DOCUMENTATION: JOB ID: [id number] Quality ID # [id number]: Final reports with documentation of one or more dose reduction techniques (e.g., Au tomated exposure control, adjustment of the mA and/or kV according to patient size, use of iterative reconstruction technique) 2010 [employer]- All Rights Reserved Reading location - IP/workstation name: [email or web address]
[2019-09-25] MEDS ORDERED: TRAMADOL HCL 50 MG TABLET PO PRN (18:06)
[2019-09-25] MEDS ORDERED: LIDOCAINE 5% (700 MG) TRANSDERMAL ADH..PATCH TP ONE (19:00)
[2019-09-25] MEDS: NORMAL SALINE 1000 ML 1,000 ML IV PRN (21:15)
[2019-09-25] MEDS: ATORVASTATIN CALCIUM 10 MG TABLET PO SCH (21:15)
[2019-09-26 06:13] LABS: BLOOD UREA NITROGEN 13 mg/dL (7-20); GLUCOSE 106 mg/dL (75-110); POTASSIUM 4.3 mmol/L (3.6-5.0)
[2019-09-26 06:19] LABS: CARBON DIOXIDE 26 mmol/L (22-30); CHLORIDE 97 mmol/L (98-107)
[2019-09-26 06:20] LABS: ANION GAP 4 (5-19)
[2019-09-26] MEDS: NORMAL SALINE 1000 ML 1,000 ML IV PRN ×2 (06:50→21:01)
[2019-09-26] MEDS: CALCIUM CARBONATE 600 MG/VITAMIN D3 400 UNIT TABLET PO SCH (09:29)
[2019-09-26] MEDS: LISINOPRIL 10 MG TABLET PO SCH (09:29)
[2019-09-26] MEDS: APIXABAN 5 MG TABLET PO SCH ×2 (09:29→17:04)
[2019-09-26] MEDS: ATENOLOL 50 MG TABLET PO SCH (09:29)
[2019-09-26] MEDS: DOCUSATE SODIUM 100 MG CAPSULE PO SCH (09:30)
[2019-09-26] MEDS ORDERED: CALCIUM CARBONATE 600 MG/VITAMIN D3 400 UNIT TABLET PO SCH (10:00)
[2019-09-26] MEDS ORDERED: [UNRECOGNIZED DRUG - OTHER] PO SCH (10:00)
[2019-09-26] MEDS ORDERED: (PENDING PHARMACY ID) (Vit A/Vit C/Vit E/Zinc/Copper [Preservision Areds Tablet] 1 EACH) PO SCH (10:00)
--- NOTE | 2019-09-26 13:51 | PDOC PROGRESS REPORT ---
Subjective Progress Note for:: 09/26/19 Subjective:: Patient was seen on afternoon rounds with daughter present. She is found sitting up to the recliner, comfortably, on room air. She is feeling well; frustrated by the frequency of interruptions to her sleep overnight. Discussed that we wont check VS and delay lab work so that she will hopefully rest better tonight. Discussed plans to discharge home tomorrow; both feel comfortable with going home with home health. She denies fever, chills, chest pain, palpitations, dyspnea, orthopnea, abdominal pain, nausea vomiting and diarrhea. She has no new questions or concerns. No concerns per nursing. Reason For Visit: HYPONATREMIA Physical Exam Vital Signs: Temp Pulse Resp BP Pulse Ox 98.3 F 81 12 95/52 L 97 09/26/19 10:56 09/26/19 10:56 09/26/19 10:56 09/26/19 10:56 09/26/19 10:56 Intake & Output 09/25/19 09/26/19 09/27/19 06:59 06:59 06:59 Intake Total 2000 1818 120 Output Total 950 Balance 1050 1818 120 Weight 73.1 kg 73.1 kg General appearance: PRESENT: no acute distress, well-developed, well-nourished, other - overweight Head exam: PRESENT: atraumatic, normocephalic Eye exam: PRESENT: conjunctiva pink, EOMI, PERRLA. ABSENT: scleral icterus Mouth exam: PRESENT: moist, tongue midline Respiratory exam: PRESENT: clear to auscultation jennyfer, symmetrical, unlabored. ABSENT: rales, rhonchi, wheezes Cardiovascular exam: PRESENT: RRR, +S1, +S2. ABSENT: diastolic murmur, rubs, systolic murmur Vascular exam: PRESENT: normal capillary refill Extremities exam: PRESENT: full ROM. ABSENT: calf tenderness, clubbing, pedal edema Neurological exam: PRESENT: alert, awake, oriented to person, oriented to place, oriented to time, oriented to situation, CN II-XII grossly intact. ABSENT: motor sensory deficit Psychiatric exam: PRESENT: agitated, appropriate affect, normal mood. ABSENT: homicidal ideation, suicidal ideation Skin exam: PRESENT: dry, intact, warm. ABSENT: cyanosis, rash Results Laboratory Results: 09/25/19 05:35 09/26/19 05:21 09/25/19 09/26/19 14:45 05:21 Sodium 123.7 L 126.7 L Potassium 4.4 D 4.3 Chloride 93 L 97 L Carbon Dioxide 26 26 Anion Gap 5 4 L BUN 13 13 Creatinine 0.60 0.56 Est GFR ( Amer) > 60 > 60 Glucose 108 106 Calcium 8.2 L 8.0 L 09/24/19 09/24/19 09:03 09:03 Creatine Kinase 73 Troponin I < 0.012 Impressions: Chest CT 09/24/19 00:00 IMPRESSION: Minimal right pleural effusion. Small nonobstructing right renal calculi. No other significant findings in the chest. Soft Tissue Neck CT 09/24/19 00:00 IMPRESSION: NO SIGNIFICANT FINDING IN THE SOFT TISSUES OF THE NECK. Head CT 09/25/19 00:00 IMPRESSION: CHRONIC CHANGES OF ATROPHY AND MICROVASCULAR ISCHEMIA. NO ACUTE PROCESS. EVIDENCE OF ACUTE STROKE: NO. Assessment and Plan - Diagnosis (1) Hyponatremia Is this a current diagnosis for this admission?: Yes Plan: continued improvement; 117-> 119-> 122.4-> 126.7 Received 1 L normal saline bolus while in the emergency department. Patient is admitted to the medical floor. We will continue gentle IV fluids. Discontinued hydrochlorothiazide. Liberalize dietary sodium. Follow up chemistries. (2) Atrial fibrillation Qualifiers: Atrial fibrillation type: longstanding persistent Qualified Code(s): I48.11 - Longstanding persistent atrial fibrillation Is this a current diagnosis for this admission?: Yes Plan: Patient will be monitored on telemetry. Rate controlled on home dose atenolol. Continue chronic anticoagulation with Eliquis. (3) Hypertension Is this a current diagnosis for this admission?: Yes Plan: Continue home dose atenolol. Continue lisinopril. Discontinue hydrochlorothiazide secondary to hyponatremia. (4) Weakness of both lower extremities Is this a current diagnosis for this admission?: Yes Plan: Likely secondary to #1. TSH and B12 are appropriate. (5) Early satiety Is this a current diagnosis for this admission?: Yes Plan: Patient reports history of hiatal hernia. She also complains of early satiety and 40 pound weight loss over the last [address] Neck and Chest negative for acute findings (did not note esophageal stricture or hiatal hernia; no masses). Likely physiologic r/t age. registered nurse renal is consulted. - Time Time Spent with patient: 15-24 minutes Medications reviewed and adjusted accordingly: Yes Anticipated Discharge Disposition: Home with Home Health Anticipated Discharge Timeframe: within 24 hours
[2019-09-26] MEDS: ATORVASTATIN CALCIUM 10 MG TABLET PO SCH (21:02)
[2019-09-27 08:20] LABS: BLOOD UREA NITROGEN 15 mg/dL (7-20); GLUCOSE 101 mg/dL (75-110); POTASSIUM 4.4 mmol/L (3.6-5.0)
[2019-09-27 08:26] LABS: CARBON DIOXIDE 23 mmol/L (22-30); CHLORIDE 101 mmol/L (98-107)
[2019-09-27 08:28] LABS: ANION GAP 3 (5-19)
[2019-09-27 09:21] LABS: CHOLESTEROL 97.89 mg/dL (0-200); TRIGLYCERIDES 76 mg/dL (<150)
[2019-09-27 09:32] LABS: DIRECT LDL 45 mg/dL (<100)
[2019-09-27] MEDS ORDERED: LISINOPRIL 10 MG TABLET PO SCH (10:00)
[2019-09-27] MEDS: APIXABAN 5 MG TABLET PO SCH ×2 (10:04→17:14)
[2019-09-27] MEDS: CALCIUM CARBONATE 600 MG/VITAMIN D3 400 UNIT TABLET PO SCH (10:05)
[2019-09-27] MEDS: DOCUSATE SODIUM 100 MG CAPSULE PO SCH (10:07)
[2019-09-27 13:19] LABS: OSMOLALITY,URINE 432 mOsm/kg (300-900)
[2019-09-27 13:25] LABS: URINE SODIUM 34 mmol/L (30-90)
[2019-09-27] MEDS ORDERED: NORMAL SALINE 1000 ML 1,000 ML IV ONE (13:39)
[2019-09-27 16:12] LABS: APPEARANCE,URINE SLIGHTLY-CLOUDY; BILIRUBIN,URINE NEGATIVE (NEGATIVE); COLOR,URINE AMBER; GLUCOSE, URINE NEGATIVE (NEGATIVE); KETONES,URINE NEGATIVE (NEGATIVE); PROTEIN,URINE NEGATIVE (NEGATIVE); URINE SPECIFIC GRAVITY 1.017; UROBILINOGEN,URINE NEGATIVE mg/dL (<2.0)
[2019-09-27 16:59] LABS: ANION GAP 9 (5-19); BLOOD UREA NITROGEN 16 mg/dL (7-20); CALCIUM 8.3 mg/dL (8.4-10.2); CARBON DIOXIDE 21 mmol/L (22-30); CHLORIDE 99 mmol/L (98-107); GLUCOSE 116 mg/dL (75-110); POTASSIUM 4.2 mmol/L (3.6-5.0)
[2019-09-27] MEDS: TAMSULOSIN HCL 0.4 MG CAP.SR.24H PO SCH (17:14)
[2019-09-27] MEDS ORDERED: FUROSEMIDE 20 MG TABLET PO ONE (18:00)
[2019-09-27] MEDS: ATORVASTATIN CALCIUM 10 MG TABLET PO SCH (21:05)
[2019-09-28] MEDS: ATENOLOL 50 MG TABLET PO SCH ×2 (08:39→21:07)
[2019-09-28] MEDS: DOCUSATE SODIUM 100 MG CAPSULE PO SCH (10:35)
[2019-09-28] MEDS: APIXABAN 5 MG TABLET PO SCH (10:35)
[2019-09-28] MEDS: CALCIUM CARBONATE 600 MG/VITAMIN D3 400 UNIT TABLET PO SCH (10:35)
[2019-09-28] MEDS ORDERED: FUROSEMIDE 20 MG TABLET PO ONE (13:00)
[2019-09-28] MEDS: APIXABAN 2.5 MG TABLET PO SCH (17:19)
[2019-09-28] MEDS: TAMSULOSIN HCL 0.4 MG CAP.SR.24H PO SCH (17:19)
[2019-09-28] MEDS: ATORVASTATIN CALCIUM 10 MG TABLET PO SCH (21:07)
[2019-09-29 08:26] LABS: HEMATOCRIT 33.6 % (36.0-47.0); HEMOGLOBIN 11.7 g/dL (12.0-15.5); MEAN CORPUSCULAR HEMOGLOBIN 30.9 pg (27.0-33.4); MEAN CORPUSCULAR HGB CONC 34.7 g/dL (32.0-36.0); MEAN CORPUSCULAR VOLUME 89 fl (80-97); PLATELET COUNT 255 10^3/uL (150-450); RED BLOOD COUNT 3.78 10^6/uL (3.72-5.28); RED CELL DISTRIBUTION WIDTH 14.6 % (11.5-14.0); WHITE BLOOD COUNT 3.3 10^3/uL (4.0-10.5)
[2019-09-29 08:41] LABS: ANION GAP 6 (5-19); BLOOD UREA NITROGEN 16 mg/dL (7-20); CALCIUM 8.9 mg/dL (8.4-10.2); CARBON DIOXIDE 23 mmol/L (22-30); CHLORIDE 100 mmol/L (98-107); GLUCOSE 123 mg/dL (75-110); POTASSIUM 4.2 mmol/L (3.6-5.0)
[2019-09-29] MEDS: ATENOLOL 50 MG TABLET PO SCH ×2 (09:22→21:07)
[2019-09-29] MEDS: CALCIUM CARBONATE 600 MG/VITAMIN D3 400 UNIT TABLET PO SCH (09:22)
[2019-09-29] MEDS: DOCUSATE SODIUM 100 MG CAPSULE PO SCH (09:23)
[2019-09-29] MEDS: APIXABAN 2.5 MG TABLET PO SCH ×2 (09:23→18:14)
[2019-09-29] MEDS ORDERED: FUROSEMIDE 20 MG TABLET PO SCH (10:00)
--- NOTE | 2019-09-29 18:04 | PDOC PROGRESS REPORT ---
Subjective Progress Note for:: 09/29/19 Subjective:: ESTRADA TAYLOR is a 89 year old female with a past medical history significant for atrial fibrillation (anticoagulated on Eliquis, hypertension, hyperlipidemia, and obesity who presented to the emergency department today with a complaint of generalized weakness that has been progressively worsening over the last several weeks. She also reports early satiety with poor appetite. She is drinking plenty of fluids. Evaluation in the emergency department found hypotension (97/59) but otherwise stable vital signs, mild anemia (hemoglobin 11.9), hyponatremia (NA 117.3), negative troponin, negative urinalysis EKG demonstrated atrial fibrillation. She is provided IV fluids and liberalized dietary sodium. She is referred to the hospitalist for further evaluation management of the above-stated complaints and findings. 09/29/2019. No acute events overnight. Patient is very anxious to leave home, I had a conversation with her with her daughter and explained that her sodium is too low and its dangers to be going home. Patient and family voiced understanding. Denies any fever, chills, nausea, vomiting. Reason For Visit: HYPONATREMIA Physical Exam Vital Signs: Temp Pulse Resp BP Pulse Ox 98.2 F 76 16 107/58 L 100 09/29/19 15:59 09/29/19 15:59 09/29/19 15:59 09/29/19 15:59 09/29/19 15:59 Intake & Output 09/28/19 09/29/19 09/30/19 06:59 06:59 06:59 Intake Total 2820 980 620 Output Total 1650 800 Balance 1170 180 620 Weight 74.5 kg 74.5 kg General appearance: PRESENT: no acute distress, well-developed, well-nourished Head exam: PRESENT: atraumatic, normocephalic Respiratory exam: PRESENT: clear to auscultation jennyfer. ABSENT: rales, rhonchi, w heezes GI/Abdominal exam: PRESENT: normal bowel sounds, soft. ABSENT: distended, guarding, mass, organolmegaly, rebound, tenderness Extremities exam: PRESENT: +2 edema Neurological exam: PRESENT: alert, awake, oriented to person, oriented to place, oriented to time, CN II-XII grossly intact. ABSENT: motor sensory deficit Results Laboratory Results: 09/29/19 07:39 09/29/19 07:39 09/29/19 09/29/19 07:39 07:39 WBC 3.3 L RBC 3.78 Hgb 11.7 L Hct 33.6 L MCV 89 MCH 30.9 MCHC 34.7 RDW 14.6 H Plt Count 255 Sodium 128.9 L Potassium 4.2 Chloride 100 Carbon Dioxide 23 Anion Gap 6 BUN 16 Creatinine 0.53 Est GFR ( Amer) > 60 Glucose 123 H Calcium 8.9 09/24/19 09/24/19 09:03 09:03 Creatine Kinase 73 Troponin I < 0.012 Impressions: Chest CT 09/24/19 00:00 IMPRESSION: Minimal right pleural effusion. Small nonobstructing right renal calculi. No other significant findings in the chest. Soft Tissue Neck CT 09/24/19 00:00 IMPRESSION: NO SIGNIFICANT FINDING IN THE SOFT TISSUES OF THE NECK. Head CT 09/25/19 00:00 IMPRESSION: CHRONIC CHANGES OF ATROPHY AND MICROVASCULAR ISCHEMIA. NO ACUTE PROCESS. EVIDENCE OF ACUTE STROKE: NO. Assessment and Plan - Diagnosis (1) Hyponatremia Is this a current diagnosis for this admission?: Yes Plan: continued improvement; 117-> 119-> 122.4-> 126.7 Received 1 L normal saline bolus while in the emergency department. Patient is admitted to the medical floor. We will continue gentle IV fluids. Discontinued hydrochlorothiazide. Liberalize dietary sodium. Follow up chemistries. (2) Atrial fibrillation Qualifiers: Atrial fibrillation type: longstanding persistent Qualified Code(s): I48.11 - Longstanding persistent atrial fibrillation Is this a current diagnosis for this admission?: Yes Plan: Patient will be monitored on telemetry. Rate controlled on home dose atenolol. Continue chronic anticoagulation with Eliquis. (3) Early satiety Is this a current diagnosis for this admission?: Yes Plan: Patient reports history of hiatal hernia. She also complains of early satiety and 40 pound weight loss over the last [address] Neck and Chest negative for acute findings (did not note esophageal stricture or hiatal hernia; no masses). Likely physiologic r/t age. percher is consulted. (4) Hypertension Is this a current diagnosis for this admission?: Yes Plan: Continue home dose atenolol. Continue lisinopril. Discontinue hydrochlorothiazide secondary to hyponatremia. (5) Weakness of both lower extremities Is this a current diagnosis for this admission?: Yes Plan: Likely secondary to #1. TSH and B12 are appropriate. - Time Time Spent with patient: 25-34 minutes Medications reviewed and adjusted accordingly: Yes Anticipated Discharge Disposition: Home with Home Health Anticipated Discharge Timeframe: within 48 hours
[2019-09-29] MEDS: SODIUM CHLORIDE 1 GM TABLET PO SCH (18:14)
[2019-09-29] MEDS: TAMSULOSIN HCL 0.4 MG CAP.SR.24H PO SCH (18:14)
[2019-09-29] MEDS: ATORVASTATIN CALCIUM 10 MG TABLET PO SCH (21:06)
[2019-09-29] MEDS ORDERED: FUROSEMIDE INJ/PF 20 MG/2 ML SDV IV SCH (22:00)
[2019-09-30 07:42] LABS: ANION GAP 8 (5-19); BLOOD UREA NITROGEN 16 mg/dL (7-20); CARBON DIOXIDE 23 mmol/L (22-30); CHLORIDE 99 mmol/L (98-107); GLUCOSE 117 mg/dL (75-110); POTASSIUM 4.1 mmol/L (3.6-5.0)
[2019-09-30] MEDS: APIXABAN 2.5 MG TABLET PO SCH (09:34)
[2019-09-30] MEDS: CALCIUM CARBONATE 600 MG/VITAMIN D3 400 UNIT TABLET PO SCH (09:34)
[2019-09-30] MEDS: ATENOLOL 50 MG TABLET PO SCH ×2 (09:34→21:22)
[2019-09-30] MEDS: DOCUSATE SODIUM 100 MG CAPSULE PO SCH (09:34)
[2019-09-30] MEDS: MAGNESIUM OXIDE 400 MG TABLET PO SCH ×2 (09:34→17:26)
[2019-09-30] MEDS: POTASSIUM CHLORIDE 10 MEQ TABLET.ER PO SCH (09:35)
[2019-09-30] MEDS: SODIUM CHLORIDE 1 GM TABLET PO SCH ×2 (09:35→17:26)
[2019-09-30] MEDS: FUROSEMIDE INJ/PF 20 MG/2 ML SDV IV SCH ×2 (14:36→21:23)
--- NOTE | 2019-09-30 15:41 | PDOC PROGRESS REPORT ---
Subjective Progress Note for:: 09/30/19 Subjective:: ESTRADA TAYLOR is a 89 year old female with a past medical history significant for atrial fibrillation (anticoagulated on Eliquis, hypertension, hyperlipidemia, and obesity who presented to the emergency department today with a complaint of generalized weakness that has been progressively worsening over the last several weeks. She also reports early satiety with poor appetite. She is drinking plenty of fluids. Evaluation in the emergency department found hypotension (97/59) but otherwise stable vital signs, mild anemia (hemoglobin 11.9), hyponatremia (NA 117.3), negative troponin, negative urinalysis EKG demonstrated atrial fibrillation. She is provided IV fluids and liberalized dietary sodium. She is referred to the hospitalist for further evaluation management of the above-stated complaints and findings. 09/29/2019. No acute events overnight. Patient is very anxious to leave home, I had a conversation with her with her daughter and explained that her sodium is too low and its dangers to be going home. Patient and family voiced understanding. Denies any fever, chills, nausea, vomiting. 09/30/2019. No acute events overnight. Unfortunately patient is still hyponatremic and has significant bilateral lower extremity edema patient is very anxious to leave the hospital and is sharp with nursing staff and myself, explained to her in detail again about hyponatremia and risk of correcting it too fast, patient voiced understanding. Patient is stating that she is ambulating with no pain now, p.o. tolerant, having bowel movement, denies any fever, chills, nausea, vomiting, diarrhea, constipation or any urinary symptoms. Possible discharge home tomorrow. Reason For Visit: HYPONATREMIA Physical Exam Vital Signs: Temp Pulse Resp BP Pulse Ox 97.4 F 83 15 112/60 100 09/30/19 07:59 09/30/19 07:59 09/30/19 07:59 09/30/19 07:59 09/30/19 07:59 Intake & Output 09/29/19 09/30/19 10/01/19 06:59 06:59 06:59 Intake Total 980 1150 1100 Output Total 800 1250 400 Balance 180 -100 700 Weight 74.5 kg General appearance: PRESENT: no acute distress, well-developed, well-nourished Head exam: PRESENT: atraumatic, normocephalic Neck exam: ABSENT: carotid bruit, JVD, lymphadenopathy, thyromegaly Respiratory exam: PRESENT: clear to auscultation jennyfer. ABSENT: rales, rhonchi, wheezes Cardiovascular exam: PRESENT: RRR. ABSENT: diastolic murmur, rubs, systolic murmur Extremities exam: PRESENT: +2 edema Neurological exam: PRESENT: alert, awake, oriented to person, oriented to place, oriented to time, oriented to situation, CN II-XII grossly intact. ABSENT: motor sensory deficit Results Laboratory Results: 09/29/19 07:39 09/30/19 07:15 09/30/19 07:15 Sodium 129.6 L Potassium 4.1 Chloride 99 Carbon Dioxide 23 Anion Gap 8 BUN 16 Creatinine 0.58 Est GFR ( Amer) > 60 Glucose 117 H Calcium 9.0 Magnesium 1.6 09/24/19 09/24/19 09:03 09:03 Creatine Kinase 73 Troponin I < 0.012 Impressions: Chest CT 09/24/19 00:00 IMPRESSION: Minimal right pleural effusion. Small nonobstructing right renal calculi. No other significant findings in the chest. Soft Tissue Neck CT 09/24/19 00:00 IMPRESSION: NO SIGNIFICANT FINDING IN THE SOFT TISSUES OF THE NECK. Head CT 09/25/19 00:00 IMPRESSION: CHRONIC CHANGES OF ATROPHY AND MICROVASCULAR ISCHEMIA. NO ACUTE PROCESS. EVIDENCE OF ACUTE STROKE: NO. Assessment and Plan - Diagnosis (1) Hyponatremia Is this a current diagnosis for this admission?: Yes Plan: Hypervolemic hypoosmolar hyponatremia. Urine osmolarity Mild improvement. Chronic. CT chest negative for any malignancy. Serum osmolarity 265. Cortisol 20. Urine osmolarity 433. Urine sodium 49. DC hydrochlorothiazide. Fluid restriction. Supplemental sodium chloride. IV diuretics. Seizure, fall and aspiration precautions. BMP tomorrow. (2) Atrial fibrillation Qualifiers: Atrial fibrillation type: longstanding persistent Qualified Code(s): I48.11 - Longstanding persistent atrial fibrillation Is this a current diagnosis for this admission?: Yes Plan: Rate controlled. Anticoagulated. Continue telemetry, beta-blockers and anticoagulation. Outpatient PCP follow-up. (3) Early satiety Is this a current diagnosis for this admission?: Yes Plan: Patient reports history of hiatal hernia. She also complains of early satiety and 40 pound weight loss over the last [address] Neck and Chest negative for acute findings (did not note esophageal stricture or hiatal hernia; no masses). Likely physiologic r/t age. organic section technical lead is consulted. (4) Hypertension Is this a current diagnosis for this admission?: Yes Plan: Continue home dose atenolol. Continue lisinopril. Discontinue hydrochlorothiazide secondary to hyponatremia. (5) Weakness of both lower extremities Is this a current diagnosis for this admission?: Yes Plan: Likely secondary to #1. Plan as per #1. Denies any history of CHF, cirrhosis or CKD. - Time Time Spent with patient: 35 or more minutes Medications reviewed and adjusted accordingly: Yes Anticipated Discharge Disposition: Home, Self Care Anticipated Discharge Timeframe: within 24 hours
[2019-09-30] MEDS: APIXABAN 5 MG TABLET PO SCH (17:26)
[2019-09-30] MEDS: TAMSULOSIN HCL 0.4 MG CAP.SR.24H PO SCH (17:26)
[2019-09-30] MEDS ORDERED: APIXABAN 2.5 MG TABLET PO SCH (18:00)
[2019-09-30] MEDS: ATORVASTATIN CALCIUM 10 MG TABLET PO SCH (21:22)
[2019-10-01 05:31] LABS: INTERNATIONAL RATION (INR) 1.32; PROTHROMBIN TIME 16.6 SEC (11.4-15.4)
[2019-10-01] MEDS: FUROSEMIDE INJ/PF 20 MG/2 ML SDV IV SCH (05:35)
[2019-10-01 05:43] LABS: BLOOD UREA NITROGEN 17 mg/dL (7-20); GLUCOSE 109 mg/dL (75-110)
[2019-10-01 06:18] LABS: ANION GAP 6 (5-19); CARBON DIOXIDE 27 mmol/L (22-30); CHLORIDE 98 mmol/L (98-107); POTASSIUM 4.4 mmol/L (3.6-5.0)
[2019-10-01] MEDS ORDERED: TOLVAPTAN 15 MG TABLET PO ONE (08:30)
[2019-10-01] MEDS: MAGNESIUM OXIDE 400 MG TABLET PO SCH ×2 (10:44→17:06)
[2019-10-01] MEDS: SODIUM CHLORIDE 1 GM TABLET PO SCH ×2 (10:44→17:07)
[2019-10-01] MEDS: APIXABAN 5 MG TABLET PO SCH ×2 (10:44→17:06)
[2019-10-01] MEDS: CALCIUM CARBONATE 600 MG/VITAMIN D3 400 UNIT TABLET PO SCH (10:44)
[2019-10-01] MEDS: DOCUSATE SODIUM 100 MG CAPSULE PO SCH (10:44)
[2019-10-01] MEDS: POTASSIUM CHLORIDE 10 MEQ TABLET.ER PO SCH (10:45)
[2019-10-01] MEDS ORDERED: NORMAL SALINE 1000 ML 500 ML IV ONE (14:49)
[2019-10-01 15:14] LABS: PROTHROMBIN TIME 18.3 SEC (11.4-15.4)
[2019-10-01 16:07] VITALS: BP 102/50
--- NOTE | 2019-10-04 13:52 | PDOC DISCHARGE SUMMARY ---
Impression - Admit/DC Date/PCP Admission Date/Primary Care Provider: 09/24/19 12:14 Discharge Date: 10/01/19 - Discharge Diagnosis (1) Hyponatremia Is this a current diagnosis for this admission?: Yes (2) Atrial fibrillation Is this a current diagnosis for this admission?: Yes (3) Early satiety Is this a current diagnosis for this admission?: Yes (4) Hypertension Is this a current diagnosis for this admission?: Yes (5) Weakness of both lower extremities Is this a current diagnosis for this admission?: Yes - Additional Information Resuscitation Status: Do Not Resuscitate Discharge Diet: As Tolerated Discharge Activity: Activity As Tolerated, Balance Activity w/Rest, Keep Legs Elevated, Weigh Daily Referrals: CHARLENE KEE NP [NO LOCAL MD] - Follow up as needed ([facility]- ) Prescriptions: Furosemide [Lasix 20 mg Tablet] 10 mg PO QAM 30 Days #15 tablet Lisinopril [Prinivil 5 mg Tablet] 5 mg PO DAILY 30 Days #30 tablet Home Medications: Atenolol [Tenormin 25 mg Tablet] 50 mg PO DAILY 06/26/12 Atorvastatin Calcium [Lipitor 10 mg Tablet] 10 mg PO DAILY 06/26/12 Calcium Citrate/Vitamin D3 [Citracal + D Caplet] 2 each PO DAILY 06/26/12 Gluc Abarca/Chondro Abarca A/Vit C/Mn [Glucosamine 1,500 Complex Cap] 2 each PO DAILY 06/26/12 Apixaban [Eliquis 5 mg Tablet] 5 mg PO BID 09/24/19 Vit A/Vit C/Vit E/Zinc/Copper [Preservision Areds Tablet] 1 each PO DAILY 09/24/19 Furosemide [Lasix 20 mg Tablet] 10 mg PO QAM 30 Days #15 tablet 10/01/19 Lisinopril [Prinivil 5 mg Tablet] 5 mg PO DAILY 30 Days #30 tablet 10/01/19 History of Present Illiness History of Present Illness: ESTRADA GASTON is a 89 year old female with a past medical history significant for atrial fibrillation (anticoagulated on Eliquis, hypertension, hyperlipidemia, and obesity who presented to the emergency department today with a complaint of generalized weakness that has been progressively worsening over the last several weeks. She also reports early satiety with poor appetite. She is drinking plenty of fluids. Evaluation in the emergency department found hypotension (97/59) but otherwise stable vital signs, mild anemia (hemoglobin 11.9), hyponatremia (NA 117.3), negative troponin, negative urinalysis EKG demonstrated atrial fibrillation. She is provided IV fluids and liberalized dietary sodium. She is referred to the hospitalist for further evaluation management of the above-stated complaints and findings. Hospital Course Hospital Course: (1) Hyponatremia Hypervolemic hypoosmolar hyponatremia. Most likely chronic. CT chest negative for any malignancy. Moderate improvement. Sodium 132.2 on the day of discharge. Serum osmolarity 265. Cortisol 20. Urine osmolarity 433. Urine sodium 49. 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 Patient is on SSRIs and SNRIs which both can cause ADH. Started on seizure, fall and aspiration precautions and restrictions. (2) Atrial fibrillation Rate controlled. Anticoagulated. Continued telemetry, beta-blockers and anticoagulation. Outpatient PCP follow-up. (3) Early satiety Patient reports history of hiatal hernia. She also complains of early satiety and 40 pound weight loss over the last [address] Neck and Chest negative for acute findings (did not note esophageal stricture or hiatal hernia; no masses). Likely physiologic r/t age. english as a second language teacher is consulted. (4) Hypertension Continued home dose atenolol. Continued lisinopril. Discontinued hydrochlorothiazide secondary to hyponatremia. Patient was noted to have soft BPs on the day of discharge, was given 500 cc of NS which improved her BP a little bit. Patient was not orthostatic and did not complain of lightheadedness or palpitation. Patient and daughter who were present at the bedside were both instructed to frequently check BP and if blood pressure less than 120 to hold his medications. They are also advised to follow-up with PCP as soon as possible preferably within the week. (5) Weakness of both lower extremities and Edema Likely secondary to #1. As per family patient recently evaluated by tour actor and she does not have any history of CHF. Patient does not have any cirrhosis or any CKD. Not sure if lower extremity was casued due to venous insufficiency. I took over care of patient on the third day of hospitalization and she already had 2+ pitting edema. Not sure if this was present on admission. Lower extremity edema was improving but unfortunately patient is very anxious to leave the hospital. Patient could benefited from staying another day or 2 to monitor lower extremity edema as well as her hyponatremia. She assured me that she is on good hand and if anything happens she will be brought back to ED. Patient was counseled on importance of bilateral lower extremity elevation, compression stocking and monitoring her fluid intake. Appointment was made for her to follow-up at the wound care clinic and asked her to follow-up with PCP as soon as possible. On 10/04/2019 I called over her daughter Maral Gaston and inquired about her. Per her daughter she was doing great and her lower extremity edema once improving significantly her blood pressure was also normal. Ms Gaston stated that they have an appointment with her PCP on 10/05/2019. Physical Exam Vital Signs: Temp Pulse Resp BP Pulse Ox 97.8 F 76 16 102/50 L 100 10/01/19 16:08 10/01/19 16:08 10/01/19 16:08 10/01/19 16:08 10/01/19 16:08 General appearance: PRESENT: no acute distress, well-developed, well-nourished Head exam: PRESENT: atraumatic, normocephalic Respiratory exam: PRESENT: clear to auscultation jennyfer. ABSENT: rales, rhonchi, wheezes Cardiovascular exam: PRESENT: RRR. ABSENT: diastolic murmur, rubs, systolic murmur GI/Abdominal exam: PRESENT: normal bowel sounds, soft. ABSENT: distended, guarding, mass, organolmegaly, rebound, tenderness Extremities exam: PRESENT: full ROM, +1 edema. ABSENT: calf tenderness, clubbing, pedal edema Skin exam: PRESENT: vesicles - BLE below knee, most likely due to volume overload, no sign of infection, very unlikely allergic reaction. Results Laboratory Results: WBC 3.3 10^3/uL (4.0-10.5) L 09/29/19 07:39 RBC 3.78 10^6/uL (3.72-5.28) 09/29/19 07:39 Hgb 11.7 g/dL (12.0-15.5) L 09/29/19 07:39 Hct 33.6 % (36.0-47.0) L 09/29/19 07:39 MCV 89 fl (80-97) 09/29/19 07:39 MCH 30.9 pg (27.0-33.4) 09/29/19 07:39 MCHC 34.7 g/dL (32.0-36.0) 09/29/19 07:39 RDW 14.6 % (11.5-14.0) H 09/29/19 07:39 Plt Count 255 10^3/uL (150-450) 09/29/19 07:39 Lymph % (Auto) 7.6 % (13-45) L 09/24/19 09:03 [place] % (Auto) 13.1 % (3-13) H 09/24/19 09:03 Eos % (Auto) 0.3 % (0-6) 09/24/19 09:03 Baso % (Auto) 0.4 % (0-2) 09/24/19 09:03 Absolute Neuts (auto) 3.5 10^3/uL (1.7-8.2) 09/24/19 09:03 Absolute Lymphs (auto) 0.3 10^3/uL (0.5-4.7) L 09/24/19 09:03 Absolute Monos (auto) 0.6 10^3/uL (0.1-1.4) 09/24/19 09:03 Absolute Eos (auto) 0.0 10^3/uL (0.0-0.6) 09/24/19 09:03 Absolute Basos (auto) 0.0 10^3/uL (0.0-0.2) 09/24/19 09:03 Seg Neutrophils % 78.6 % (42-78) H 09/24/19 09:03 PT 18.3 SEC (11.4-15.4) H 10/01/19 14:16 INR 1.50 10/01/19 14:16 Sodium 132.2 mmol/L (137-145) L 10/01/19 13:18 Potassium 4.4 mmol/L (3.6-5.0) 10/01/19 04:56 Chloride 98 mmol/L (98-107) 10/01/19 04:56 Carbon Dioxide 27 mmol/L (22-30) 10/01/19 04:56 Anion Gap 6 (5-19) 10/01/19 04:56 BUN 17 mg/dL (7-20) 10/01/19 04:56 Creatinine 0.68 mg/dL (0.52-1.25) 10/01/19 04:56 Est GFR ( Amer) > 60 (>60) 10/01/19 04:56 Est GFR (MDRD) Non-Af > 60 (>60) 10/01/19 04:56 Glucose 109 mg/dL (75-110) 10/01/19 04:56 Serum Osmolality 265 mOsm/kg (275-301) L 09/27/19 07:49 Calcium 9.0 mg/dL (8.4-10.2) 10/01/19 04:56 Phosphorus 2.8 mg/dL (2.5-4.5) 09/25/19 05:35 Magnesium 1.8 mg/dL (1.6-2.3) 10/01/19 04:56 Total Bilirubin 1.1 mg/dL (0.2-1.3) 09/24/19 09:03 Direct Bilirubin 0.0 mg/dL (0.0-0.4) 09/24/19 09:03 Neonat Total Bilirubin Not Reportable 09/24/19 09:03 Neonat Direct Bilirubin Not Reportable 09/24/19 09:03 Neonat Indirect Bili Not Reportable 09/24/19 09:03 AST 34 U/L (14-36) 09/24/19 09:03 ALT 17 U/L (<35) 09/24/19 09:03 Alkaline Phosphatase 73 U/L (38-126) 09/24/19 09:03 Creatine Kinase 73 U/L (30-135) 09/24/19 09:03 Troponin I < 0.012 ng/mL 09/24/19 09:03 Total Protein 6.7 g/dL (6.3-8.2) 09/24/19 09:03 Albumin 3.3 g/dL (3.5-5.0) L 09/24/19 09:03 Triglycerides 76 mg/dL (<150) 09/27/19 07:49 Cholesterol 97.89 mg/dL (0-200) 09/27/19 07:49 LDL Cholesterol Direct 45 mg/dL (<100) 09/27/19 07:49 VLDL Cholesterol 15.0 mg/dL (10-31) 09/27/19 07:49 HDL Cholesterol 34 mg/dL (>40) L 09/27/19 07:49 Vitamin B12 865.0 pg/mL (239-931) 09/25/19 05:35 TSH 1.50 uIU/mL (0.47-4.68) 09/25/19 05:35 Random Cortisol 20.40 ug/dL (None Established) 09/27/19 07:49 ACTH 13.7 pg/mL (7.2-63.3) 09/27/19 09:20 Urine Color PIYUSH 09/27/19 12:45 Urine Appearance SLIGHTLY-CLOUDY 09/27/19 12:45 Urine pH 5.0 (5.0-9.0) 09/27/19 12:45 Ur Specific [place] 1.017 09/27/19 12:45 Urine Protein NEGATIVE mg/dL (NEGATIVE) 09/27/19 12:45 Urine Glucose (UA) NEGATIVE mg/dL (NEGATIVE) 09/27/19 12:45 Urine Ketones NEGATIVE mg/dL (NEGATIVE) 09/27/19 12:45 Urine Blood NEGATIVE (NEGATIVE) 09/27/19 12:45 Urine Nitrite NEGATIVE (NEGATIVE) 09/24/19 09:03 Urine Nitrite (Reflex) NEGATIVE (NEGATIVE) 09/27/19 12:45 Urine Bilirubin NEGATIVE (NEGATIVE) 09/27/19 12:45 Urine Urobilinogen NEGATIVE mg/dL (<2.0) 09/27/19 12:45 Ur Leukocyte Esterase NEGATIVE (NEGATIVE) 09/24/19 09:03 Leukocyte Esterase Rfl NEGATIVE (NEGATIVE) 09/27/19 12:45 Urine WBC (Auto) 1 /HPF 09/24/19 09:03 Urine RBC (Auto) 1 /HPF 09/27/19 12:45 U Hyaline Cast (Auto) 4 /LPF 09/24/19 09:03 Urine Bacteria (Auto) 3+ /HPF 09/27/19 12:45 Urine WBC (Reflex) 1 /HPF 09/27/19 12:45 Squamous Epi Cells Auto 1 /HPF 09/24/19 09:03 Urine Mucus (Auto) RARE /LPF 09/27/19 12:45 Urine Osmolality 432 mOsm/kg (300-900) 09/27/19 12:45 Urine Creatinine 74.9 mg/dL (15-278) 09/24/19 09:03 Urine Sodium 69 mmol/L (30-90) 09/27/19 21:10 Urine Ascorbic Acid 40 (NEGATIVE) H 09/27/19 12:45 09/24/19 09:03 Troponin I < 0.012 Impressions: Chest CT 09/24/19 00:00 IMPRESSION: Minimal right pleural effusion. Small nonobstructing right renal calculi. No other significant findings in the chest. Soft Tissue Neck CT 09/24/19 00:00 IMPRESSION: NO SIGNIFICANT FINDING IN THE SOFT TISSUES OF THE NECK. Head CT 09/25/19 00:00 IMPRESSION: CHRONIC CHANGES OF ATROPHY AND MICROVASCULAR ISCHEMIA. NO ACUTE PROCESS. EVIDENCE OF ACUTE STROKE: NO. Stroke Is this a Stroke Patient?: No Acute Heart Failure - Is this a Heart Failure Patient?: No
== END 2019-10-01 17:48 | disposition home health service (06) | DRG 948 ==
LOC: ER 08:51 → EH 12:14 → 5 19:05
PROVIDERS: ADMIT Internal Medicine; ATTEND Internal Medicine
DX: R53.1 Weakness (principal); E87.1 Hypo-osmolality and hyponatremia; I48.11 Longstanding persistent atrial fibrillation; Z79.01 Long term (current) use of anticoagulants; I10 Essential (primary) hypertension; E78.5 Hyperlipidemia, unspecified; E66.9 Obesity, unspecified; D64.9 Anemia, unspecified; Z90.49 Acquired absence of other specified parts of digestive tract; Z66 Do not resuscitate; Z79.899 Other long term (current) drug therapy; R68.81 Early satiety
CPT/HCPCS: 36415; 70450; 70491; 71260; 80048; 80053; 80061; 81001; 82024; 82533; 82550; 82570; 82607; 83735; 83930; 83935; 84100; 84295; 84300; 84443; 84484; 85025; 85027; 85610; 93005; 93010; 96360; 96361; 99285; J1940; J3490; J7030